=== PATIENT | male | born 1985 | race Caucasian/White ===

== ENCOUNTER 2016-05-10 09:14 | Emergency (ER) | payer OTHER ==
[~2016-05-10] VITALS: Ht 175.3 cm; Wt 136.1 kg
[2016-05-10 09:18] VITALS: BP 139/74
--- NOTE | 2016-05-10 09:20 | NUR ---
PT AMBULATED TO BED 3
--- NOTE | 2016-05-10 09:31 | NUR ---
30/M TO ED WITH C/O COUGH, SORE THROAT, AND SOB X2 DAYS. PT STATES HE HAS HX OF ASTHMA AND INHALER ISNT WORKING. LUNGS CLEAR BILAT. HR EVEN AND REGULAR. PAIN 7/10 IN THROAT. AAOX4. VSS. NO SIGNS OF DISTRESS.
[2016-05-10] MEDS ORDERED: ALBUTEROL SULFATE/IPRATROPIU 3 ML SOL IH ONE (09:35)
[2016-05-10] MEDS ORDERED: predniSONE 20 MG TAB PO ONE (09:35)
--- NOTE | 2016-05-10 09:35 | NUR ---
RT at bedside to give patient breathing treatment.
--- NOTE | 2016-05-10 10:56 | NUR ---
Dr. Westbrook evaluating patient at bedside.
[2016-05-10] MEDS ORDERED: guaiFENesin/CODEINE 100/10MG 5 ML UDC PO ONE (11:05)
[2016-05-10] MEDS ORDERED: ALBUTEROL 0.083% 2.5 MG/3 ML NEBU INH ONE (11:05)
--- NOTE | 2016-05-10 11:30 | NUR ---
Patient appears to be resting comfortably in bed. Vital Signs within normal limits. Respirations even and unlabored.
[2016-05-10 12:39] VITALS: BP 134/64
== END 2016-05-10 12:40 | disposition home or self-care (01) ==
LOC: MED 09:14
DX: J45.901 Unspecified asthma with (acute) exacerbation (principal); J02.8 Acute pharyngitis due to other specified organisms; B97.89 Other viral agents as the cause of diseases classified elsewhere; B34.9 Viral infection, unspecified; I10 Essential (primary) hypertension; E66.9 Obesity, unspecified; Z68.41 Body mass index [BMI] 40.0-44.9, adult
CPT/HCPCS: 71020; 87081; 94640; 99285; J7512; J7613; J7620

== ENCOUNTER 2018-07-23 10:09 | Emergency (ER) | payer MEDICAID, OTHER ==
[~2018-07-23] VITALS: Ht 175.3 cm; Wt 145.1 kg
[2018-07-23 10:22] VITALS: BP 150/98
--- NOTE | 2018-07-23 10:28 | NUR ---
PT MABULATED TO ED BED 10. REPORT GIVEN TO INDIA HEREDIA, 12 LEADS EKG DONE.
--- NOTE | 2018-07-23 10:35 | NUR ---
PATIENT PRESENTS TO ED WITH C/O CHEST PAIN X 2 DAYS. PT DENIES N/V, FEVER,SOB, OR COUGH AT THIS TIME; PATIENT STATES SHARP & NON-RADIATING PAIN OF 8/10 AT THIS TIME. VSS; PATIENT PLACED ON GOWN AND CONNECTED TO MONITOR; HOB ELEVATED; BEDRAILS UP X1; BED LOCKED AND IN LOWER POSITION. ER MD TO EVALUATE PT.
--- NOTE | 2018-07-23 10:36 | NUR ---
DR ERVIN AT BEDSIDE EVALUATING PT.
--- NOTE | 2018-07-23 10:45 | NUR ---
X RAY AT BEDSIDE.
[2018-07-23] MEDS ORDERED: KETOROLAC 60 MG/2 ML VIAL IM ONE (10:55)
[2018-07-23] MEDS ORDERED: FAMOTIDINE 20 MG TAB PO ONE (10:55)
--- NOTE | 2018-07-23 11:02 | NUR ---
LAB AT BEDSIDE.
[2018-07-23 11:09] LABS: BASOPHILS # (AUTO) 0.1 K/uL (0.00-0.22); EOSINOPHILS # (AUTO) 0.3 K/uL (0-0.4); EOSINOPHILS % (AUTO) 2.6 % (0.0-4.0); HEMATOCRIT 44.8 % (36-52); LYMPHOCYTES # (AUTO) 2.9 K/uL (2.0-11.5); LYMPHOCYTES % (AUTO) 29.2 % (20.5-51.1); MEAN CORPUSCULAR HEMOGLOBIN 30 pg (27-31); MEAN CORPUSCULAR HGB CONC 34 g/dL (33-37); MEAN CORPUSCULAR VOLUME 88.9 fL (80-94); MONOCYTES # (AUTO) 1.1 K/uL (0.8-1.0); MONOCYTES % (AUTO) 10.7 % (1.7-9.3); NEUTROPHILS # (AUTO) 5.7 K/uL (1.8-7.7); NEUTROPHILS % (AUTO) 56.5 % (42.2-75.2); PLATELET COUNT (AUTO) 325 K/uL (140-450); RED BLOOD CELL COUNT(AUTO) 5.04 MIL/uL (4.20-6.10); RED CELL DISTRIBUTION WIDTH 13.6 % (11.6-13.7); WHITE BLOOD COUNT (AUTO) 10.1 K/uL (4.8-10.8)
[2018-07-23 11:19] LABS: CARBON DIOXIDE 25.8 mmol/L (21-32); CREATININE 0.9 mg/dL (0.7-1.3); POTASSIUM 3.8 mmol/L (3.5-5.1)
[2018-07-23 11:25] LABS: ALBUMIN 3.4 g/dL (3.4-5.0); TOTAL BILIRUBIN 0.6 mg/dL (0.0-1.0)
--- NOTE | 2018-07-23 11:56 | NUR ---
Patient discharged with v/s stable. Written and verbal after care instructions given and explained. Patient alert, oriented and verbalized understanding of instructions. Ambulatory with steady gait. All questions addressed prior to discharge. ID band removed. Patient advised to follow up with PMD. Rx of PEPSIDE 40 MG given. Patient educated on indication of medication including possible reaction and side effects. Opportunity to ask questions provided and answered.
[2018-07-23 11:57] VITALS: BP 108/57
== END 2018-07-23 11:56 | disposition home or self-care (01) ==
LOC: MED 10:09
DX: K85.90 Acute pancreatitis without necrosis or infection, unspecified (principal); K21.9 Gastro-esophageal reflux disease without esophagitis; R05 Cough; J45.909 Unspecified asthma, uncomplicated; I10 Essential (primary) hypertension; E11.9 Type 2 diabetes mellitus without complications
CPT/HCPCS: 36415; 71045; 80053; 83690; 84484; 85025; 93005; 96372; 99284; J1885; Q0092

== ENCOUNTER 2018-10-28 09:07 | Emergency (ER) | payer OTHER ==
[~2018-10-28] VITALS: Ht 177.8 cm; Wt 142.1 kg
[2018-10-28 09:10] VITALS: BP 131/73
--- NOTE | 2018-10-28 09:26 | NUR ---
PATIENT AMBULATED TO BED 1.
[2018-10-28] MEDS ORDERED: HYDR-5123 PO (09:34)
--- NOTE | 2018-10-28 09:35 | NUR ---
33/M BIB C/O MID LOWER BACK PAIN RADIATING TO MID UPPER BACK & LEFT SHOULDER PAIN S/P PICKING UP HEAVY GLASSES TRASH CANS X1 WEEKS. PT WORKS FOR RECYCLING. PATIENT STATES PAIN OF 10/10 AT THIS TIME. PATIENT POSITIONED FOR COMFORT; HOB ELEVATED; BEDRAILS UP X1; BED DOWN. ER MD MADE AWARE OF PT STATUS.
--- NOTE | 2018-10-28 10:14 | NUR ---
PT TAKEN TO RAD VIA W/C
--- NOTE | 2018-10-28 10:14 | NUR ---
Araceli dueñas in [facility] - 10/28/18 at 1014 by [email or web address] pt taken to x ray via w/c, accompanied by medical radiation therapist.
[2018-10-28 12:40] VITALS: BP 137/65
--- NOTE | 2018-10-28 12:40 | NUR ---
Patient discharged with v/s stable. Written and verbal after care instructions given and explained. Patient alert, oriented and verbalized understanding of instructions. Ambulatory with steady gait. All questions addressed prior to discharge. ID band removed. Patient advised to follow up with PMD. Rx of NAPROSYN & NORCO given. Patient educated on indication of medication including possible reaction and side effects. Opportunity to ask questions provided and answered.
== END 2018-10-28 12:40 | disposition home or self-care (01) ==
LOC: MED 09:07
DX: S22.9XXA Fracture of bony thorax, part unspecified, initial encounter for closed fracture (principal); S46.912A Strain of unspecified muscle, fascia and tendon at shoulder and upper arm level, left arm, initial encounter; X50.0XXA Overexertion from strenuous movement or load, initial encounter; Y93.89 Activity, other specified; Y92.89 Other specified places as the place of occurrence of the external cause; Y99.8 Other external cause status
CPT/HCPCS: 72100; 72128; 73030; 81002; 99284

== ENCOUNTER 2018-11-12 14:27 | Emergency (ER) | payer OTHER ==
[~2018-11-12] VITALS: Ht 172.7 cm; Wt 139.8 kg
[~2018-11-12 14:27] MED LIST: HYDR-5123 PO
[2018-11-12 14:28] VITALS: BP 151/96
--- NOTE | 2018-11-12 14:35 | NUR ---
CAME HERE FOR RECHECK SHOULDER PAIN. SEEN HERE 10/28/18. PAIN 0/. MED HX: DENIES.
--- NOTE | 2018-11-12 14:37 | NUR ---
PT ambulated to Chair C.
--- NOTE | 2018-11-12 14:38 | NUR ---
Patient being evaluated by MARY MENA at bedside.
--- NOTE | 2018-11-12 15:00 | NUR ---
Patient discharged with v/s stable. Written and verbal after care instructions given and explained. Patient verbalized understanding. Ambulatory with steady gait. All questions addressed prior to discharge. Advised to follow up with PMD.
== END 2018-11-12 15:00 | disposition home or self-care (01) ==
LOC: MED 14:27
DX: M25.512 Pain in left shoulder (principal); J45.909 Unspecified asthma, uncomplicated; I10 Essential (primary) hypertension; Z79.899 Other long term (current) drug therapy
CPT/HCPCS: 99281

== ENCOUNTER 2019-04-04 04:53 | Emergency (ER) | payer OTHER ==
[~2019-04-04] VITALS: Ht 182.9 cm; Wt 136.1 kg
[2019-04-04 04:55] VITALS: BP 105/70
--- NOTE | 2019-04-04 04:57 | NUR ---
TO LOBBY A/W BED AMBULATORY
--- NOTE | 2019-04-04 05:25 | NUR ---
PT AMBULATED TO BED #12
[2019-04-04] MEDS ORDERED: ONDANSETRON 4 MG ODT PO ONE (05:50)
--- NOTE | 2019-04-04 06:00 | NUR ---
BLOODWORK DRAWN AND TAKEN TO LAB.
[2019-04-04 06:07] LABS: BASOPHILS # (AUTO) 0.1 K/uL (0.00-0.22); BASOPHILS % (AUTO) 0.6 % (0.0-2.0); EOSINOPHILS # (AUTO) 0.3 K/uL (0-0.4); EOSINOPHILS % (AUTO) 1.9 % (0.0-4.0); HEMATOCRIT 43.7 % (36-52); HEMOGLOBIN 14.3 g/dL (12.0-18.0); LYMPHOCYTES # (AUTO) 2.5 K/uL (2.0-11.5); LYMPHOCYTES % (AUTO) 18.8 % (20.5-51.1); MEAN CORPUSCULAR HEMOGLOBIN 30 pg (27-31); MEAN CORPUSCULAR HGB CONC 33 g/dL (33-37); MEAN CORPUSCULAR VOLUME 90.1 fL (80-94); MONOCYTES # (AUTO) 0.9 K/uL (0.8-1.0); NEUTROPHILS # (AUTO) 9.6 K/uL (1.8-7.7); NEUTROPHILS % (AUTO) 71.7 % (42.2-75.2); PLATELET COUNT (AUTO) 301 K/uL (140-450); RED BLOOD CELL COUNT(AUTO) 4.86 MIL/uL (4.20-6.10); RED CELL DISTRIBUTION WIDTH 13.4 % (11.6-13.7); WHITE BLOOD COUNT (AUTO) 13.4 K/uL (4.8-10.8)
[2019-04-04 06:21] LABS: ALBUMIN 3.3 g/dL (3.4-5.0); ANION GAP 11.6 (8-16); CARBON DIOXIDE 27.2 mmol/L (21-32); CREATININE 0.8 mg/dL (0.6-1.3); POTASSIUM 3.8 mmol/L (3.5-5.1); TOTAL BILIRUBIN 0.2 mg/dL (0.0-1.0)
--- NOTE | 2019-04-04 07:12 | NUR ---
PT AMBULATED TO RESTROOM, URINE COLLECTED FROM PT AT THIS TIME.
[2019-04-04 08:16] VITALS: BP 129/68
--- NOTE | 2019-04-04 08:16 | NUR ---
Patient discharged with v/s stable. Written and verbal after care instructions given and explained. Patient alert, oriented and verbalized understanding of instructions. Ambulatory with steady gait. All questions addressed prior to discharge. ID band removed. Patient advised to follow up with PMD. Rx of Albuterol, Zofran, Pepcid given. Patient educated on indication of medication including possible reaction and side effects. Opportunity to ask questions provided and answered.
== END 2019-04-04 08:16 | disposition home or self-care (01) ==
LOC: MED 04:53
DX: K29.70 Gastritis, unspecified, without bleeding (principal); J45.909 Unspecified asthma, uncomplicated; K21.9 Gastro-esophageal reflux disease without esophagitis; I10 Essential (primary) hypertension; Z79.899 Other long term (current) drug therapy
CPT/HCPCS: 36415; 80053; 81002; 83690; 85025; 99283; Q0162

== ENCOUNTER 2019-04-12 14:24 | Emergency (ER) | payer OTHER ==
[~2019-04-12] VITALS: Ht 165.1 cm; Wt 140.2 kg
[2019-04-12 14:32] VITALS: BP 149/78
--- NOTE | 2019-04-12 14:38 | NUR ---
WAIT AT LOBBY. HANDED ON URINE CUP.
--- NOTE | 2019-04-12 15:16 | NUR ---
33 Y/O MALE BIB SELF C/O EPIGASTRIC PAIN, 10/10 SHARP PAIN BEGINNING THIS MORNING AT 6AM. UPPER ABD PAIN CAUSING NAUSEA/VOMITING, PT REPORTS HE CAME TO THE ER YESTERDAY WITH THE SAME PAIN AND WAS GIVEN MEDS FOR NAUSEA AND GERD, BUT PAIN WAS UNRELIEVED. BOWEL SOUNDS NORMO ACTIVE IN ALL QUADRANTS. ABD NON DISTENDED, SOFT, PAIN UPON PALPATION. DENIES SOB/ CP. RESP EVEN AND UNLABORED. LUNG SOUNDS CLEAR IN BILAT LOBES. CAP REFILL <3. AAOX4. PT HAS NOT MEDICATED FOR PAIN TODAY. AMBULATED TO BED. BED IN LOWEST POSITION. PMH: ASTHMA, GERD NKA
[2019-04-12] MEDS ORDERED: MORPHINE SULFATE 4 MG/ML SYR IVP ONE (16:10)
[2019-04-12] MEDS ORDERED: ONDANSETRON 4 MG/2 ML VIAL IVP ONE (16:10)
[2019-04-12] MEDS ORDERED: NACL 0.9% 1,000 ML IV ONE ×2 (16:10→19:00)
--- NOTE | 2019-04-12 16:35 | NUR ---
US AT BEDSIDE
[2019-04-12 16:37] LABS: BASOPHILS # (AUTO) 0.2 K/uL (0.00-0.22); BASOPHILS % (AUTO) 1.1 % (0.0-2.0); EOSINOPHILS # (AUTO) 0.2 K/uL (0-0.4); HEMATOCRIT 44.4 % (36-52); HEMOGLOBIN 15.3 g/dL (12.0-18.0); LYMPHOCYTES # (AUTO) 2.4 K/uL (2.0-11.5); LYMPHOCYTES % (AUTO) 14.9 % (20.5-51.1); MEAN CORPUSCULAR HEMOGLOBIN 30 pg (27-31); MEAN CORPUSCULAR HGB CONC 35 g/dL (33-37); MEAN CORPUSCULAR VOLUME 85.9 fL (80-94); MONOCYTES # (AUTO) 1.3 K/uL (0.8-1.0); MONOCYTES % (AUTO) 8.2 % (1.7-9.3); NEUTROPHILS # (AUTO) 11.9 K/uL (1.8-7.7); NEUTROPHILS % (AUTO) 74.8 % (42.2-75.2); PLATELET COUNT (AUTO) 364 K/uL (140-450); RED BLOOD CELL COUNT(AUTO) 5.17 MIL/uL (4.20-6.10); RED CELL DISTRIBUTION WIDTH 13.4 % (11.6-13.7); WHITE BLOOD COUNT (AUTO) 15.9 K/uL (4.8-10.8)
--- NOTE | 2019-04-12 16:38 | NUR ---
CT WITH CONTRAST SIGNED AT BEDSIDE
[2019-04-12 16:43] LABS: APPEARANCE,URINE CLEAR (CLEAR); BILIRUBIN,URINE NEGATIVE (NEGATIVE); BLOOD, URINE NEGATIVE (NEGATIVE); COLOR,URINE YELLOW (YELLOW); LEUKOCYTE ESTERASE ,URINE NEGATIVE (NEGATIVE); NITRITE, URINE NEGATIVE (NEGATIVE); UGLUCOSE NEGATIVE (NEGATIVE)
[2019-04-12 16:54] LABS: ALBUMIN 3.9 g/dL (3.4-5.0); ANION GAP 15.1 (8-16); CARBON DIOXIDE 24.4 mmol/L (21-32); CREATININE 1.1 mg/dL (0.6-1.3); POTASSIUM 3.5 mmol/L (3.5-5.1); TOTAL BILIRUBIN 0.5 mg/dL (0.0-1.0)
[2019-04-12] MEDS ORDERED: MORPHINE SULFATE 10 MG/ML VIAL IVP ONE (17:10)
[2019-04-12] MEDS ORDERED: PIPERACILLIN/TAZOBACTAM 3.375 GM in DEXTROSE 5% 50 ML IV ONE (17:20)
[2019-04-12] MEDS ORDERED: PIPERACILLIN/TAZOBACTAM 3.375 GM VIAL IV ONE (17:30)
--- NOTE | 2019-04-12 17:43 | NUR ---
PT TAKEN TO CT VIA WHEELCHAIR
--- NOTE | 2019-04-12 18:18 | NUR ---
PT REPORTS THAT PAIN HAS DECREASED BUT IS STILL 5/10. RESTING IN BED WITH AT BEDSIDE. VSS
[2019-04-12] MEDS ORDERED: HYDROmorphone PFS 2 MG/ML SYR IVP ONE (19:00)
--- NOTE | 2019-04-12 19:53 | NUR ---
PT AT BEDSIDE, VSS, RESP EVEN AND UNLABORED. BED IN LOWEST POSITION WITH SIDE RAILS RAISED
--- NOTE | 2019-04-12 22:40 | NUR ---
PT REPORTS THAT PAIN IS LEVEL IS INCREASING, 8/10 SHARP PAIN IN ABDOMEN. LUIS ANTONIO BARNETT NOTIFIED
--- NOTE | 2019-04-12 23:39 | NUR ---
[facility] AT BEDSIDE
--- NOTE | 2019-04-12 23:40 | NUR ---
REPORT CALLED TO [facility] ER [phone], CHINMAY HEREDIA
--- NOTE | 2019-04-12 23:51 | NUR ---
PT TAKEN BY [facility] TO [facility]
[2019-04-12 23:53] VITALS: BP 149/72
--- NOTE | 2019-04-14 07:21 | NUR ---
Late entry. COnfirmed with RN that 0.9NS IV completed at 2000
== END 2019-04-12 23:51 | disposition short-term general hospital (02) ==
LOC: MED 14:24
DX: K81.9 Cholecystitis, unspecified (principal); J45.909 Unspecified asthma, uncomplicated; K21.9 Gastro-esophageal reflux disease without esophagitis; I10 Essential (primary) hypertension; Z79.899 Other long term (current) drug therapy
CPT/HCPCS: 36415; 74177; 76705; 80053; 81003; 82150; 83605; 83690; 85025; 87040; 96361; 96365; 96375; 96376; 99285; J1170; J2270; J2405; J2543; J7030; Q0092; Q9967

== ENCOUNTER 2020-02-17 07:54 | Emergency (ER) | payer OTHER ==
[~2020-02-17] VITALS: Ht 177.8 cm; Wt 131.5 kg
[2020-02-17 07:58] VITALS: BP 157/92
--- NOTE | 2020-02-17 08:05 | NUR ---
PATIENT PRESENTS TO ED WITH RIGHT SHOULDER PAIN S/P SLIP AND FALL IN SNOW . PT STATES IT CAUSES SEVERE PAIN TO ROTATE ARM, NO OBVIOUS DEFORMITIES NOTED. DENIES N/V/D; SKIN IS PINK/WARM/DRY; AAOX4 WITH EVEN AND STEADY GAIT; LUNGS CLEAR BL; HR EVEN AND REGULAR; PT DENIES ANY FEVER, CP, SOB, OR COUGH AT THIS TIME; PATIENT STATES PAIN OF 9/10 AT THIS TIME; VSS; PATIENT POSITIONED FOR COMFORT; HOB ELEVATED; BEDRAILS UP X2; BED DOWN. ER MD MADE AWARE OF PT STATUS.
[2020-02-17] MEDS ORDERED: CRUSHER, PILL MC ONE (08:15)
[2020-02-17] MEDS: KETOROLAC 60 MG/2 ML VIAL IM ONE (08:18)
[2020-02-17 09:02] VITALS: BP 157/92
--- NOTE | 2020-02-17 09:02 | NUR ---
Patient discharged with v/s stable. Written and verbal after care instructions given and explained. Patient alert, oriented and verbalized understanding of instructions. Ambulatory with steady gait. All questions addressed prior to discharge. ID band removed. Patient advised to follow up with PMD. Rx of Motrin and Marlow given. Patient educated on indication of medication including possible reaction and side effects. Opportunity to ask questions provided and answered.
== END 2020-02-17 09:02 | disposition home or self-care (01) ==
LOC: MED 07:54
DX: M25.511 Pain in right shoulder (principal); J45.909 Unspecified asthma, uncomplicated; K21.9 Gastro-esophageal reflux disease without esophagitis; I10 Essential (primary) hypertension; F12.90 Cannabis use, unspecified, uncomplicated; Z90.49 Acquired absence of other specified parts of digestive tract; Z79.899 Other long term (current) drug therapy
CPT/HCPCS: 73030; 96372; 99283; J1885

== ENCOUNTER 2020-07-06 05:15 | Emergency (ER) | payer OTHER ==
[~2020-07-06] VITALS: Ht 172.7 cm; Wt 145.1 kg
[~2020-07-06 05:15] MED LIST changes: +HYDR-5080 PO; -HYDR-5123 PO
[2020-07-06 05:20] VITALS: BP 136/90
--- NOTE | 2020-07-06 05:23 | NUR ---
to ED bed 09
--- NOTE | 2020-07-06 05:36 | NUR ---
see complete assessment.
--- NOTE | 2020-07-06 06:00 | NUR ---
Dr. Gomes with pt for MSE
[2020-07-06] MEDS ORDERED: KETOROLAC 30 MG/ML VIAL IM ONE (06:10)
--- NOTE | 2020-07-06 06:45 | NUR ---
marcelina swab collected and handed over to lab technician Amanda.
--- NOTE | 2020-07-06 07:13 | NUR ---
report given to Moriah HEREDIA. transfer of care at this time.
[2020-07-06] MEDS ORDERED: NAPR-54 PO (07:45)
[2020-07-06] MEDS ORDERED: AZIT250T4 PO (07:45)
[2020-07-06 08:01] VITALS: BP 132/76
--- NOTE | 2020-07-06 08:02 | NUR ---
Patient discharged with v/s stable. Written and verbal after care instructions given and explained. Patient alert, oriented and verbalized understanding of instructions. Ambulatory with steady gait. All questions addressed prior to discharge. ID band removed. Patient advised to follow up with PMD. Rx of NAPROXEN AND AZITHROMYCIN given. Patient educated on indication of medication including possible reaction and side effects. Opportunity to ask questions provided and answered.
== END 2020-07-06 08:02 | disposition home or self-care (01) ==
LOC: MED 05:15
DX: J20.9 Acute bronchitis, unspecified (principal); Z20.822 Contact with and (suspected) exposure to COVID-19; J45.909 Unspecified asthma, uncomplicated; K21.9 Gastro-esophageal reflux disease without esophagitis; I10 Essential (primary) hypertension; Z79.899 Other long term (current) drug therapy
CPT/HCPCS: 71045; 87426; 96372; 99284; J1885

== ENCOUNTER 2022-04-01 22:05 | Emergency (ER) | payer OTHER ==
[~2022-04-01] VITALS: Ht 175.3 cm; Wt 145.1 kg
[~2022-04-01 22:05] MED LIST changes: +AZIT250T4 PO; +NAPR-54 PO
[2022-04-01 22:10] VITALS: BP 119/77
[2022-04-01] MEDS ORDERED: KETOROLAC 15 MG/ML VIAL IM ONE (23:50)
[2022-04-01] MEDS ORDERED: IBUP-2213 PO (23:51)
--- NOTE | 2022-04-02 00:33 | NUR ---
Patient discharged with v/s stable. Written and verbal after care instructions given and explained. Patient alert, oriented and verbalized understanding of instructions. Wheel Chair Assisted with to home. All questions addressed prior to discharge. ID band removed. Patient advised to follow up with PMD. Rx of Ibuprofen given. Opportunity to ask questions provided and answered.
== END 2022-04-02 00:33 | disposition home or self-care (01) ==
LOC: MED 22:05
DX: S83.91XA Sprain of unspecified site of right knee, initial encounter (principal); J45.909 Unspecified asthma, uncomplicated; K21.9 Gastro-esophageal reflux disease without esophagitis; I10 Essential (primary) hypertension; Z79.899 Other long term (current) drug therapy; X58.XXXA Exposure to other specified factors, initial encounter; Y93.89 Activity, other specified; Y92.89 Other specified places as the place of occurrence of the external cause; Y99.0 Civilian activity done for income or pay
CPT/HCPCS: 29505; 73562; 96372; 99283; J1885